=== PATIENT | female | born 1990 | race Caucasian/White ===

== ENCOUNTER → 2025-08-22 | Emergency (ER) | payer MEDICAID, OTHER ==
[~2025-08-22] VITALS: Ht 157.5 cm; Wt 102.3 kg
[~2025-08-22] MED LIST: ACET-3385 PO; AMPH20TA3 PO; IBUP-1492 PO; IOHEXOL 350 MG/ML 100 ML VIAL ONE; ONDA-104 PO; SODIUM CHLORIDE 0.9% 100 ML ONE
[2025-08-22 08:47] LABS: PLATELET COUNT (AUTO) 405 K/uL (150-450); RED BLOOD CELL COUNT(AUTO) 4.67 MIL/uL (4.00-5.20); RED CELL DISTRIBUTION WIDTH 14.4 % (11.5-14.5); WHITE BLOOD COUNT (AUTO) 10.5 K/uL (4.5-11.0)
[2025-08-22] MEDS: MORPHINE SULFATE 2 MG/ML SYRINGE IVP ONE (08:49)
[2025-08-22] MEDS: SODIUM CHLORIDE 0.9% 1,000 ML IV ONE (08:49)
[2025-08-22] MEDS: ONDANSETRON HCL 4 MG/2 ML VIAL IVP ONE (08:50)
[2025-08-22] MEDS: KETOROLAC TROMETHAMINE 30 MG/ML VIAL IVP ONE (08:50)
[2025-08-22 08:57] LABS: CALCIUM, TOTAL 8.8 mg/dL (8.8-10.5); CREATININE 0.68 mg/dL (0.60-1.30); GLOMERULAR FILTR. RATE CALC > 60 mL/min (>60); GLUCOSE,RANDOM 119 mg/dL (70-110); SODIUM SERUM 141 mmol/L (136-145); UREA NITROGEN, BLOOD 11 mg/dL (7-18)
[2025-08-22 09:09] LABS: ASPARTATE AMINOTRANSFERASE 20.0 U/L (15-37); TOTAL PROTEIN, SERUM 8.0 g/dL (6.4-8.2)
[2025-08-22 10:26] LABS: APPEARANCE,URINE CLEAR (CLEAR); GLUCOSE, URINE (UA) NEGATIVE (NEGATIVE); LEUKOCYTE ESTERASE ,URINE NEGATIVE (NEGATIVE); NITRATE,URINE NEGATIVE (NEGATIVE); OCCULT BLOOD,URINE LARGE (NEGATIVE); SPECIFIC GRAVITIY, URINE > 1.030 (1.003-1.030)
[2025-08-22 10:31] LABS: SQUAMOUS EPITHELIAL CELL,UR Moderate /LPF (None Seen)
[2025-08-22 10:59] VITALS: BP 102/50; PULSE 63; RESP 16; TEMP 97; O2SAT 100
== END | disposition still patient (30) ==
LOC: EMS 08:32
DX: N13.2 Hydronephrosis with renal and ureteral calculous obstruction (principal); R10.A2 Flank pain, left side
CPT/HCPCS: 99285; 74177; 96374; 76830; 76856; 96375; 80048; 80076; 81001; 83690; 84703; 85025; 36415; J1885; Q9967; J2270; J2405; J7030; J7050